=== PATIENT | male | born 1965 | race Caucasian/White ===

== ENCOUNTER 2021-07-25 08:38 | Emergency (ER) | payer OTHER, SELFPAY ==
--- NOTE | 2021-07-25 08:53 | ED_ITS ---
HPI - Nausea/Vomiting/Diarrhea General Chief complaint: Upper Respiratory Symptoms Stated complaint: COVID+ THROWING UP/DEHYDRATED Time Seen by Provider: 07/25/21 08:45 History of Present Illness HPI Narrative: 56-year-old male nonsmoker with noncontributory medical history presents with a chief complaint of fatigue, insomnia and multiple episodes of nausea and vomiting since yesterday. He has had fever, body aches, runny nose, sore throat and dry cough for 9 days. Last Sunday (7 days ago) he tested positive for COVID, his is positive as well. He is not vaccinated. He denies any significant shortness of breath or chest pain. He denies abdominal pain or diarrhea. He developed GI symptoms yesterday and is now having trouble keeping Tylenol or Motrin down and generally feels ill. Related Data Home Medications Medication Instructions Recorded Confirmed ibuprofen 200 mg tablet (Advil) 200 mg PO PRN #0 05/14/11 Previous Rx's Medication Instructions Recorded ondansetron 4 mg disintegrating 4 mg PO TID-QID PRN #10 tab 07/25/21 tablet Allergies Allergy/AdvReac Type Severity Reaction Status Date / Time No Known Drug Allergies Allergy Verified 07/25/21 09:38 Review of Systems Review of Systems Narrative: GENERAL: See HPI HEENT: See HPI RESPIRATORY: See HPI CARDIOVASCULAR: Denies chest pain, palpitations, orthopnea, edema, GASTROINTESTINAL: See HPI. : Denies dysuria, frequency, incontinence, hematuria, urinary retention. MUSCULOSKELETAL: denies weakness, joint pain, or bony pain SKIN: Denies rash, skin lesions, or other NEUROLOGIC: Denies weakness, headache, numbness, change in speech, confusion, seizures, incoordination. PSYCHIATRIC: No concerning psychosocial issues. 12 point review of systems is negative except for those stated above Exam Narrative Exam Narrative: GENERAL: [56 year old patient appears stated age. Well-developed patient, in mild distress. No increased work of breathing HEAD: Atraumatic. Normocephalic. EYES: Pupils equal round and reactive. Extraocular motions intact. No scleral icterus. No injection or drainage. ENT: Moist mucous membranes Nose without bleeding, purulent drainage. Throat without erythema, tonsillar hypertrophy or exudate. Airway patent. NECK: Trachea midline. Non tender CARDIOVASCULAR: Regular rate and rhythm without murmurs, gallops, or rubs. RESPIRATORY: Clear to auscultation. Breath sounds equal bilaterally. No wheezes, rales, or rhonchi. GASTROINTESTINAL: Abdomen soft, non-tender, nondistended. EXTREMITIES: No edema or joint tenderness. BACK: Nontender without deformity or crepitance. No flank tenderness. NEURO: AOx3. SKIN: No rash or erythema of visible areas Initial Vital Signs Initial Vital Signs: Vital Signs Pulse Rate 82 07/25/21 09:03 Pulse Oximetry 97 07/25/21 09:03 Course Orders Ordered: ED Orders 07/25/21 08:52 C-Reactive Protein Quant Stat Complete Blood Count AUTO DIFF Stat Comprehensive Metabolic Panel Stat Lactate Dehydrogenase Stat NT-proBNP (BNP-Adult 18+) Stat 07/25/21 08:54 XR chest 1V Stat Discontinued Medications Sodium Chloride (Normal Saline 0.9%) 1,000 mls @ 1,000 mls/hr IV BOLUS ONE Stop: 07/25/21 09:52 Last Admin: 07/25/21 09:04 Dose: 1,000 mls/hr Documented by: DANII Ketorolac Tromethamine (Ketorolac 30 Mg/Ml Vial) 15 mg IV NOW ONE Stop: 07/25/21 09:00 Last Admin: 07/25/21 09:04 Dose: 15 mg Documented by: DANII Ondansetron HCl (Ondansetron 4 Mg/2 Ml Inj) 4 mg IV NOW ONE Stop: 07/25/21 08:54 Last Admin: 07/25/21 09:04 Dose: 4 mg Documented by: DANII Pantoprazole Sodium (Pantoprazole 40 Mg Vial) 40 mg IV NOW ONE Stop: 07/25/21 08:54 Last Admin: 07/25/21 09:04 Dose: 40 mg Documented by: DANII Reevaluation(s) Reevaluation #1: Patient feeling much better after above-stated therapies. Still no respiratory distress, stable vitals, tolerating orals Vital Signs Vital signs: Vital Signs - 8 hr 07/25/21 09:03 07/25/21 09:04 07/25/21 09:05 Temperature 102.5 F H 102.5 F H Pulse Rate 82 105 H Respiratory Rate 20 Blood Pressure 136/88 Pulse Oximetry 97 98 07/25/21 09:30 Temperature Pulse Rate 77 Respiratory Rate Blood Pressure Pulse Oximetry 94 MDM - Nausea/Vomiting/Diarrhea Lab Data Result diagrams: 07/25/21 08:52 07/25/21 08:52 Labs: Lab Results 07/25/21 07/25/21 Range/Units 08:52 08:52 WBC 4.0 L (4.5-11.0) X10^3/uL RBC 5.54 (4.5-5.9) X10^6/uL Hgb 16.4 (13.5-17.5) g/dL Hct 47.9 (41-53) % MCV 86.6 (80-100) fL MCH 29.7 (26-34) PG MCHC 34.3 (30-36) % RDW 13.5 (11.6-14.8) % Plt Count 91 L (150-400) X10^3/uL Neut % (Auto) 71.3 (50-75) % Lymph % (Auto) 20.2 L (25-40) % Morton % (Auto) 8.2 (3-14) % Eos % (Auto) 0.0 L (2-4) % Baso % (Auto) 0.3 (0-2) % Neut # (Auto) 2900 (5479-0692) /uL Lymph # (Auto) 800 L (3689-3591) /uL Morton # (Auto) 300 (0-900) /uL Eos # (Auto) 0 (0-450) /uL Baso # (Auto) 0 (0-100) /uL Sodium 133 L (137-145) mmol/L Potassium 3.7 (3.4-5.1) mmol/L Chloride 100 (98-107) mmol/L Carbon Dioxide 23 (22-32) mmol/L BUN 18 (9-20) mg/dL Creatinine 0.97 (0.66-1.25) mg/dL Estimated GFR > 60.0 (>60) mL/min BUN/Creatinine Ratio 18.6 (6-22) Glucose 119 H (70-100) mg/dL Calcium 8.8 (8.4-10.2) mg/dL Total Bilirubin 0.8 (0.2-1.3) mg/dL AST 39 (17-59) IU/L ALT 24 (<50) IU/L Alkaline Phosphatase 66 (38-126) U/L Lactate Dehydrogenase 843 H (313-618) U/L C-Reactive Protein 4.2 H (<1.0) mg/dL NT-Pro-B Natriuret Pep 24 (<125) pg/mL Total Protein 8.1 (6.3-8.2) g/dL Albumin 4.7 (3.5-5.0) g/dL Globulin 3.4 (1.7-4.1) g/dL Albumin/Globulin Ratio 1.4 (1.0-2.8) Imaging Data Chest x-ray: Radiologist's Impression: [address] [address] XRay Report Signed Patient: Gael Echavarria MR#: [id number] : 1965 Acct:[id number] Age/Sex: 56 / M Date of Service: 07/25/21 Loc: ED Accession Number: [id number] ?? Procedure: XR chest 1V Ordering Provider: Jonas Chavez D.O. PROCEDURE:? XR CHEST 1V ? INDICATIONS:? COVID POSITIVE ? TECHNIQUE:? One view of the chest was acquired.? ? COMPARISON:? None. ? FINDINGS:? ? Surgical changes and devices:? None.? ? Lungs and pleura:? Lungs are clear.? No pleural effusions or pneumothorax.? ? Mediastinum:? Mediastinal contours appear normal.? Heart size is normal.? ? Bones and chest wall:? No suspicious bony lesions.? Overlying soft tissues appear unremarkable.? ? IMPRESSION:? No acute cardiopulmonary process demonstrated radiographically. ? ? Dictated by: De Gamez M.D. on 07/25/2021 at 9:29 ? ? Approved by: De Gamez M.D. on 07/25/2021 at 9:29 ? [facility] Narrative Medical decision making narrative: Patient with known COVID presents with nausea and vomiting over the past 24 hours. His vital signs are very reassuring any demonstrates no respiratory distress, hypoxia or need for supplemental oxygen. His labs are very reassuring. Response to therapies is very reassuring. There is no indication for admission. Patient is tolerating orals. Return pre cautions given and questions answered to his apparent satisfaction Discharge Plan Departure Patient Disposition: Home Clinical Impression: COVID-19 Vomiting Qualifiers: Vomiting type: unspecified Vomiting Intractability: non-intractable Nausea presence: with nausea Qualified Code(s): R11.2 - Nausea with vomiting, unspecified Instructions: DI for Vomiting -- Adult, DI for COVID-19 (Suspected or Confirmed ) Activity Restrictions/Additional Instructions: *You have been diagnosed with [ COVID-19 and vomiting] *What to do: * per recommendations from the CDC and the [facility] Department of Health * stay home except to get medical care. Restrict activities outside your home, except for getting medical care. Do not go to work, school, or public areas. Avoid using public transportation, ride sharing, or taxis. * separate yourself from other people in your home. * call ahead before visiting your doctor * Wear a facemask * Cover your coughs and sneezes * Clean your hands often * Avoid sharing household items * Clean all high-touch services every day * Monitor your symptoms and seek prompt medical attention if your illness is worsening, particularly with difficulty in breathing. You may discontinue your isolation when: 1. You have been fever-free for at least 24 hours without the use of fever reducing medication, AND 2. Your symptoms are getting better 3. At least 10 days have passed since symptoms first appeared Individuals with laboratory confirmed COVID-19 who have not had any symptoms may discontinue home isolation when at least 10 days have passed since the date of their first COVID-19 diagnostic test and have had no subsequent illness As we discussed, please consider a clear liquid diet for the next 24 hours or so and then advance slowly as tolerated. I have sent a prescription for nausea medicine to your pharmacy ([facility] in [place]) Prescriptions: New ondansetron 4 mg tablet,disintegrating 4 mg PO TID-QID PRN (Reason: nausea and vomiting) Qty: 10 RF: 0 No Action ibuprofen [Advil] 200 MG tablet 200 mg PO PRN Qty: 0 RF: 0 Referrals: Alfonso Holliday MD [Primary Care Provider] -
--- NOTE | 2021-07-25 08:54 | DI.RAD.S_ITS ---
PROCEDURE: XR CHEST 1V INDICATIONS: COVID POSITIVE TECHNIQUE: One view of the chest was acquired. COMPARISON: None. FINDINGS: Surgical changes and devices: None. Lungs and pleura: Lungs are clear. No pleural effusions or pneumothorax. Mediastinum: Mediastinal contours appear normal. Heart size is normal. Bones and chest wall: No suspicious bony lesions. Overlying soft tissues appear unremarkable. IMPRESSION: No acute cardiopulmonary process demonstrated radiographically. Dictated by: De Gamez M.D. on 07/25/2021 at 9:29 Approved by: De Gamez M.D. on 07/25/2021 at 9:29
[2021-07-25 09:02] LABS: Add Manual Diff / Slide Review NO; Basophils Absolute Auto 0 /uL (0-100); Basophils Percent Auto 0.3 % (0-2); Eosinophils Absolute Auto 0 /uL (0-450); Hematocrit 47.9 % (41-53); Hemoglobin 16.4 g/dL (13.5-17.5); Lymphocytes Absolute Auto 800 /uL (1100-4500); Lymphocytes Percent Auto 20.2 % (25-40); Mean Corpuscular HGB Conc 34.3 % (30-36); Mean Corpuscular Hemoglobin 29.7 PG (26-34); Mean Corpuscular Volume 86.6 fL (80-100); Monocytes Absolute Auto 300 /uL (0-900); Monocytes Percent Auto 8.2 % (3-14); Neutrophils Absolute Auto 2900 /uL (1500-7000); Neutrophils Percent Auto 71.3 % (50-75); Platelet Count 91 X10^3/uL (150-400); Red Blood Cell Count 5.54 X10^6/uL (4.5-5.9); Red Cell Distribution Width 13.5 % (11.6-14.8)
[2021-07-25 09:03] VITALS: PULSE 82; O2SAT 97
[2021-07-25 09:04] VITALS: TEMP 39.2
[2021-07-25] MEDS: KETOROLAC 30 MG/ML VIAL 15 MG IV (09:04)
[2021-07-25] MEDS: PANTOPRAZOLE 40 MG VIAL IV (09:04)
[2021-07-25] MEDS: SODIUM CHLORIDE 0.9% 1,000 ML 1000 ML IV (09:04)
[2021-07-25] MEDS: ONDANSETRON 4 MG/2 ML INJ IV (09:04)
[2021-07-25 09:05] VITALS: BP 136/88; PULSE 105; RESP 20; TEMP 39.2; O2SAT 98; BMI 32.5
[2021-07-25 09:18] LABS: Alanine Aminotransferase 24 IU/L (<50); Albumin 4.7 g/dL (3.5-5.0); Albumin Globulin Ratio 1.4 (1.0-2.8); Alkaline Phosphatase 66 U/L (38-126); Aspartate Aminotransferase 39 IU/L (17-59); BUN Creatinine Ratio 18.6 (6-22); Bilirubin Total 0.8 mg/dL (0.2-1.3); Blood Urea Nitrogen 18 mg/dL (9-20); C-Reactive Protein Quant 4.2 mg/dL (<1.0); Calcium 8.8 mg/dL (8.4-10.2); Carbon Dioxide 23 mmol/L (22-32); Chloride 100 mmol/L (98-107); Estimated Glomerular Filt Rate > 60.0 mL/min (>60); Globulin 3.4 g/dL (1.7-4.1); Glucose 119 mg/dL (70-100); HEMOLYSIS 30 (0-50); Lactate Dehydrogenase 843 U/L (313-618); Potassium 3.7 mmol/L (3.4-5.1); Sodium 133 mmol/L (137-145); Total Protein 8.1 g/dL (6.3-8.2)
[2021-07-25 09:25] LABS: NT-proBNP (BNP-Adult 18+) 24 pg/mL (<125)
[2021-07-25 09:30] VITALS: PULSE 77; O2SAT 94
[2021-07-25 10:00] VITALS: PULSE 74; O2SAT 94
[2021-07-25 10:24] VITALS: BP 113/63; PULSE 82; TEMP 38; O2SAT 97
== END 2021-07-25 10:29 | disposition home or self-care (01) ==
PROVIDERS: Emergency Provider Emergency Medicine; Family Provider Family Medicine; PCP Family Medicine
DX: U07.1 COVID-19 (principal); R11.2 Nausea with vomiting, unspecified
CPT/HCPCS: 36415; 71045; 80053; 83615; 83880; 85025; 86140; 96361; 96374; 96375; 99284; C9113; J1885; J2405

== ENCOUNTER → 2022-11-24 12:10 | Outpatient (CLI) | payer OTHER, SELFPAY ==
--- NOTE | 2022-11-24 | DI.CT.S_ITS ---
PROCEDURE: CT SINUS SCREEN WO CON INDICATIONS: Chronic sinusitis, unspecified TECHNIQUE: Noncontrast 3.0 mm axial images acquired from the frontal sinuses to the mid-sella, with coronal and sagittal reformats. For radiation dose reduction, the following was used: automated exposure control, adjustment of mA and/or kV according to patient size. COMPARISON: None. FINDINGS: Inferior maxillary sinus mucosal thickening measuring up to 7 millimeters. Paranasal sinuses otherwise clear. Frontoethmoid recesses, sphenoid ethmoid recesses, and maxillary sinus outflow tracts all widely patent. No patricia bullosa or Jessica cell. Mild rightward nasal septal deviation. No bony features to indicate chronic or recurrent sinusitis. IMPRESSION: No findings of acute or chronic sinusitis. Mild right inferior maxillary sinus mucosal thickening. Dictated by: De Gamez M.D. on 11/24/2022 at 13:59 Approved by: De Gamez M.D. on 11/24/2022 at 14:09
== END ==
PROVIDERS: Family Provider Family Medicine; PCP Family Medicine; Referring Provider Family Medicine; Visit Provider Family Medicine
DX: J32.9 Chronic sinusitis, unspecified (principal)
CPT/HCPCS: 70486

== ENCOUNTER 2023-05-28 03:50 | Emergency (ER) | payer OTHER, SELFPAY ==
[2023-05-28 03:58] VITALS: BP 153/87; PULSE 80; RESP 16; TEMP 36.3; O2SAT 98; BMI 35.7
--- NOTE | 2023-05-28 04:19 | ED.DIZZY ---
HPI - Dizziness General Chief Complaint: Dizziness Stated Complaint: dizziness Time Seen by Provider: 05/28/23 04:18 Source: patient Mode of arrival: Ambulatory History of Present Illness HPI Narrative: This is a 57-year-old male with history of anxiety, GERD, chronic hearing loss who presents with complaint of vertigo or spinning. He states he had a dream he was sleeping he felt like he might pass out in his dream and was startled awake. He states when he started awake he went to roll over and felt the room spinning. Patient states no headache, no acute vision changes. He notes that it is worse with movement of his head. It has been improving. When he got ready for bed he stayed in bed with putting his clothes on CT he still felt like the room was spinning with movement. He was able to ambulate out of the house. Patient denies any chest pain or new shortness of breath. He is had some nausea with each episode but no vomiting. He states it seems to be decreasing over time patient denies any numbness, tingling or weakness of his extremities. No difficulty with movement. No diarrhea or constipation no other GI or urinary symptoms. He has occasionally had a sensation of vertigo a few times in the past or when he goes around a corner very quickly. He does wear hearing aids bilaterally he states he was told this was secondary to too many loud concert when he was younger. He has seen ENT in the past as he was having some chronic sinus congestion and headache on the left side this was a couple months ago. He had CT imaging and workup with ENT, Dr. Nathaniel Hays and was told that he had no major issues or diagnosis. Patient denies any prior surgeries. No known drug allergies. No tobacco, he did have a glass of wine last night, no regular alcohol. No illicit. Dr. Holliday is his primary care physician. Related Data Home Medications Medication Instructions Recorded Confirmed citalopram PO 10/18/22 10/18/22 Previous Rx's Medication Instructions Recorded meclizine 25 mg tablet 25 mg PO QID PRN vertigo #20 tabs 05/28/23 Allergies Allergy/AdvReac Type Severity Reaction Status Date / Time No Known Drug Allergies Allergy Verified 10/18/22 10:22 Review of Systems Review of Systems ROS Unobtainable: All systems reviewed & are unremarkable except as noted in HPI and below Patient History Social History Smoking Status: Never smoker Smoking Status: Never smoker alcohol intake frequency: holidays/special occasions only Substance Use Type: does not use Exam Narrative Exam Narrative: GEN: well nourished, well appearing male, alert and oriented x 3, patient appears to be in mild distress. HEENT: Atraumatic, pupils are equal round reactive to light, extraocular movements are intact, patient has rotatory nystagmus with Олег Halpike maneuver on the right, nares are clear, TMs are clear with no fluid, there is no conjunctival pallor. Throat is clear without any exudates, erythema, tonsillar enlargement or uvular deviation, no facial droop. HEART: Regular rate and rhythm without murmur, clicks, rubs. LUNGS:Lungs clear to auscultation, no wheezes, rales, crackles, chest moves symmetrically ABD:bowel sounds normal, soft, non-tender, no guarding, rebound, rigidity, no masses noted, no hepatosplenomegaly :No CVA tenderness MSCL: Non-tender, no muscle atrophy, muscles strength 5/5 upper and lower extremities, full range of motion, normal gait NEURO:CN 2-12 intact, sensation normal, finger nose finger test normal, heel pichardo test normal SKIN: No rash, erythema or other skin changes Initial Vital Signs Initial Vital Signs: Vital Signs Temperature 97.3 F L 05/28/23 03:58 Pulse Rate 80 05/28/23 03:58 Respiratory Rate 16 05/28/23 03:58 Blood Pressure 153/87 H 05/28/23 03:58 Pulse Oximetry 98 05/28/23 03:58 Oxygen Delivery Method Room Air 05/28/23 03:58 Course Orders Ordered: Discontinued Medications Meclizine HCl (Meclizine Hcl 12.5 Mg Tablet) 50 mg PO NOW ONE Stop: 05/28/23 05:25 Last Admin: 05/28/23 05:44 Dose: 50 mg Documented By: MARCUS Vital Signs Vital signs: Vital Signs - 8 hr 05/28/23 03:58 05/28/23 05:33 Temperature 97.3 F L 98.4 F Pulse Rate 80 64 Respiratory Rate 16 Blood Pressure 153/87 H 135/81 Pulse Oximetry 98 98 Oxygen Delivery Method Room Air Room Air MDM - Dizziness MDM Narrative Medical decision making narrative: 57-year-old male with onset of vertigo symptoms this morning. Patient has positive Tow[place]-Hallpike maneuver on examination with rotatory nystagmus. No other red flag symptoms currently. His symptoms have been slowly improving although still present. Patient was given dose of meclizine here in the department, he has seen ENT in the past for other issues, discussed follow-up if having persistent worsening symptoms also discussed red flag symptoms that would necessitate return for evaluation. His exam overall is reassuring. Discharge Plan Departure Patient Disposition: Home Clinical Impression: Benign paroxysmal positional vertigo Instructions: Benign Paroxysmal Positional Vertigo Activity Restrictions/Additional Instructions: Follow-up with ENT for recheck or if you are having persistent symptoms that are not improving. You can try the maneuvers provided at home. You may take meclizine 1-2 tablets every 6 hours as needed for vertigo symptoms. Prescription sent to [facility] in [place]. Please return for rapidly worsening symptoms inability to ambulate safely, severe headaches, sudden vision changes, new numbness, tingling weakness, loss of bowel or bladder control, difficulty with moving her extremities, persistent vomiting or other new or concerning changes. Prescriptions: New meclizine 25 mg tablet 25 mg PO QID PRN (Reason: vertigo) Qty: 20 0RF No Action citalopram PO Referrals: Nathaniel Hays MD [Physician] - Alfonso Holliday MD [Primary Care Provider] - Stand Alone Forms: Patient Portal/API
[2023-05-28 05:33] VITALS: BP 135/81; PULSE 64; TEMP 36.9; O2SAT 98
[2023-05-28] MEDS: MECLIZINE HCL 12.5 MG TABLET 50 MG PO (05:44)
== END 2023-05-28 05:52 | disposition home or self-care (01) ==
PROVIDERS: Emergency Provider Emergency Medicine; Family Provider Family Medicine; PCP Family Medicine
DX: H81.11 Benign paroxysmal vertigo, right ear (principal)
CPT/HCPCS: 99283